=== PATIENT | female | born 1955 | race African-American/Black ===

== ENCOUNTER 2017-01-29 10:53 | Observation (INO) | payer OTHER ==
[2017-01-29] VITALS (7 sets, daily range): BP systolic 108–158; BP diastolic 64–80; PULSE 65–90; RESP 18–20; TEMP 96.6–98.3; O2SAT 97–100
[~2017-01-29] VITALS: Ht 165.1 cm; Wt 90.4 kg
[~2017-01-29 10:53] MED LIST: ATOR20TA15 PO; CARV3.12 PO; FOSA70TA PO; HYDR1CRE TOP; HYDR25TA5 PO; LOSA100T PO; TERB1%T TOP; TRUSMIS52
[2017-01-29] MEDS ORDERED: VITA10007 PO (11:20)
[2017-01-29] MEDS ORDERED: ESTRTAB11 PO (11:20)
[2017-01-29] MEDS ORDERED: MULT1TAB84 PO (11:20)
[2017-01-29] MEDS ORDERED: FERR1TAB58 PO (11:20)
--- NOTE | 2017-01-29 11:36 | PD ---
HPI Chief Complaint: Dizziness Time Seen by Provider: 11:19 Travel History International Travel<30 days: No Contact w/Intl Traveler<30days: No Traveled to known affect area: No History of Present Illness HPI This 61-year-old female is complaining of dizziness and trouble walking. She is also having a headache. The symptoms have been going on since Thursday he has a history of a stroke 7 years ago. She said the stroke only affected her vision in the right eye and there are indications in the chart that she had a central retinal artery occlusion. She apparently has a history of carotid stenosis. She is supposed to take aspirin daily but has not been taking it. He does have a history of hypertension. She says her symptoms been fairly steady since they started on Thursday. PFSH Past Medical History Arthritis: Yes Cancer: No Cardiovascular Problems: Yes High Cholesterol: No Congestive Heart Failure: Yes Diabetes: No Diminished Hearing: No Endocrine: No Genitourinary: No Hypertension: Yes Immune Disorder: No Implanted Vascular Access Dvce: No Musculoskeletal: Yes Neurologic: No Psychiatric: No Respiratory: No Immunizations Current: Yes Tetanus Vaccination: > 5 Years Influenza Vaccination: No ?: Not Menopausal: Yes Past Surgical History Gynecologic Surgery: Yes (HYSTERECTOMY-1999) Hysterectomy: Yes Other Surgery: Yes Social History Alcohol Use: No Tobacco Use: No Substance Use: No Allergies-Medications (Allergen,Severity, Reaction): Coded Allergies: No Known Allergies (Verified , 01/29/17) Reported Meds & Prescriptions Reported Meds & Active Scripts Active Atorvastatin (Atorvastatin Calcium) 20 Mg Tab 20 Mg PO HS Losartan (Losartan Potassium) 100 Mg Tab 100 Mg PO DAILY Fosamax (Alendronate Sodium) 70 Mg Tab 70 Mg PO WEEKLY Hydrochlorothiazide 25 Mg Tab 25 Mg PO DAILY Carvedilol 3.125 Mg Tab 3.125 Mg PO BID Reported Vitamin C (Ascorbic Acid) 1,000 Mg Tab 1,000 Mg PO DAILY Estroven Nighttime (Nutritional Formula) 1 Tab 1 Tab PO DAILY Iron (Ferrous Sulfate) 50 Mg Tab 65 Mg PO DAILY Multivitamin Adults (Multiple Vitamins W/ Minerals) 1 Tab 1 Tab PO DAILY Review of Systems General / Constitutional: No: Fever, Chills Eyes: Positive: Blindness (right eye), No: Diploplia HENT: Positive: Headaches Cardiovascular: No: Chest Pain or Discomfort, Palpitations Respiratory: No: Cough, Shortness of Breath Gastrointestinal: No: Vomiting, Diarrhea Genitourinary: No: Urgency, Frequency Musculoskeletal: No: Myalgias Skin: No Rash Neurologic: Positive: Weakness, Headache Endocrine: No: Heat Intolerance Physical Exam Narrative GENERAL: Well-appearing female SKIN: Focused skin assessment warm/dry. HEAD: Atraumatic. Normocephalic. EYES: Pupils equal and round. There is lateral deviation of the right eye and eye movements are not conjugate. Pupils are small bilaterally ENT: No nasal bleeding or discharge. Mucous membranes pink and moist. NECK: Trachea midline. No JVD. CARDIOVASCULAR: Regular rate and rhythm. No murmur appreciated. RESPIRATORY: No accessory muscle use. Clear to auscultation. Breath sounds equal bilaterally. GASTROINTESTINAL: Abdomen soft, non-tender, nondistended. Hepatic and splenic margins not palpable. MUSCULOSKELETAL: No obvious deformities. No clubbing. No cyanosis. No edema. NEUROLOGICAL: Awake and alert. Left pupil is deviated laterally suggestive of third nerve palsy Motor grossly within normal limits. Normal speech. Babinskis are downgoing bilaterally. I did stand the patient and her gait is very unsteady. There is some past pointing on cerebellar testing PSYCHIATRIC: Appropriate mood and affect; insight and judgment normal. Data Data Last Documented VS Vital Signs Date Time Temp Pulse Resp B/P Pulse Ox O2 Delivery O2 Flow Rate FiO2 01/29/17 12:13 74 18 135/73 99 Room Air 01/29/17 10:59 98.3 Orders Electrocardiogram (01/29/17 11:30) Complete Blood Count With Diff (01/29/17 11:30) Basic Metabolic Panel (Bmp) (01/29/17 11:30) Prothrombin Time / Inr (Pt) (01/29/17 11:30) Act Partial Throm Time (Ptt) (01/29/17 11:30) Urinalysis - C+S If Indicated (01/29/17 11:30) Ct Brain W/O Iv Contrast(Rout) (01/29/17 11:30) Troponin I (01/29/17 11:45) Chest, Single Ap (01/29/17 11:45) Aspirin (Aspirin) (01/29/17 12:15) Labs Laboratory Tests Test 01/29/17 01/29/17 11:30 11:48 White Blood Count 7.1 TH/MM3 Red Blood Count 4.02 MIL/MM3 Hemoglobin 11.7 GM/DL Hematocrit 35.6 % Mean Corpuscular Volume 88.5 FL Mean Corpuscular Hemoglobin 29.1 PG Mean Corpuscular Hemoglobin 32.9 % Concent Red Cell Distribution Width 13.7 % Platelet Count 195 TH/MM3 Mean Platelet Volume 8.6 FL Neutrophils (%) (Auto) 62.6 % Lymphocytes (%) (Auto) 30.9 % Monocytes (%) (Auto) 4.2 % Eosinophils (%) (Auto) 1.4 % Basophils (%) (Auto) 0.9 % Neutrophils # (Auto) 4.4 TH/MM3 Lymphocytes # (Auto) 2.2 TH/MM3 Monocytes # (Auto) 0.3 TH/MM3 Eosinophils # (Auto) 0.1 TH/MM3 Basophils # (Auto) 0.1 TH/MM3 CBC Comment DIFF FINAL Differential Comment Prothrombin Time 11.3 SEC Prothromb Time International 1.0 RATIO Ratio Activated Partial 27.7 SEC Thromboplast Time Sodium Level 140 MEQ/L Potassium Level 3.4 MEQ/L Chloride Level 103 MEQ/L Carbon Dioxide Level 30.9 MEQ/L Anion Gap 6 MEQ/L Blood Urea Nitrogen 15 MG/DL Creatinine 0.93 MG/DL Estimat Glomerular Filtration 74 ML/MIN Rate Random Glucose 145 MG/DL Calcium Level 9.6 MG/DL Troponin I LESS THAN 0.02 NG/ML Urine Collection Type CLEAN CATCH Urine Color STRAW Urine Turbidity CLEAR Urine pH 6.5 Urine Specific [place] 1.004 Urine Protein NEG mg/dL Urine Glucose (UA) NEG mg/dL Urine Ketones NEG mg/dL Urine Occult Blood NEG Urine Nitrite NEG Urine Bilirubin NEG Urine Leukocyte Esterase NEG Urine Squamous Epithelial 0-5 /hpf Cells Urine Amorphous Sediment FEW Microscopic Urinalysis Comment CULT NOT INDICATED Urine Collection Time 1145 MDM Medical Decision Making Medical Screen Exam Complete: Yes Emergency Medical Condition: Yes Medical Record Reviewed: Yes Differential Diagnosis Differential includes, CVA, labyrinthitis Narrative Course EKG shows some ST depression in leads II, III, and F which is not present on previous EKGs. CT scan of the brain shows a large area of ossification involving the right frontal skull, otherwise negative Diagnosis Primary Impression: Third nerve palsy of right eye Additional Impression: CVA (cerebrovascular accident) Qualified Code: I63.9 - Cerebrovascular accident (CVA), unspecified mechanism Admitting Information Admitting Physician Requests: Enrique Crook MD Jan 29, 2017 11:36
[2017-01-29 11:47] LABS: AUTOMATED NEUTROPHIL # 4.4 TH/MM3 (1.8-7.7); BASOPHIL # 0.1 TH/MM3 (0-0.2); BASOPHIL % 0.9 % (0.0-2.0); EOSINOPHIL # 0.1 TH/MM3 (0-0.4); EOSINOPHIL % 1.4 % (0.0-4.0); HEMATOCRIT 35.6 % (35.0-46.0); LYMPH % 30.9 % (9.0-44.0); LYMPHOCYTE # 2.2 TH/MM3 (1.0-4.8); MEAN CELL VOLUME 88.5 FL (80.0-100.0); MEAN CORPUSCULAR HEMOGLOBIN 29.1 PG (27.0-34.0); MEAN CORPUSCULAR HGB CONC 32.9 % (32.0-36.0); MONO % 4.2 % (0.0-8.0); NEUT % 62.6 % (16.0-70.0); PLATELET COUNT 195 TH/MM3 (150-450); RED BLOOD COUNT 4.02 MIL/MM3 (4.00-5.30); RED CELL DISTRIBUTION WIDTH 13.7 % (11.6-17.2); WHITE BLOOD COUNT 7.1 TH/MM3 (4.0-11.0)
[2017-01-29 11:50] LABS: HEMO FLAGS DIFF FINAL
[2017-01-29 11:55] LABS: POTASSIUM 3.4 MEQ/L (3.5-5.1)
[2017-01-29 11:58] LABS: BICARBONATE 30.9 MEQ/L (21.0-32.0)
--- NOTE | 2017-01-29 12:02 | RADHPO ---
EXAM DATE/TIME: 01/29/2017 11:43 [facility] COMPARISON: No previous studies available for comparison. INDICATIONS : Dizziness. Cephalgia. RADIATION DOSE: 65.61 CTDIvol (mGy) MEDICAL HISTORY : Congestive hearrt failure. Hypertension. Blind in right eye. SURGICAL HISTORY : Hysterectomy. ENCOUNTER: Initial ACUITY: 4 - 6 days PAIN SCALE: 8/10 LOCATION: cranial TECHNIQUE: Multiple contiguous axial images were obtained of the head. Using automated exposure control and adj ustment of the mA and/or kV according to patient size, radiation dose was kept as low as reasonably a chievable to obtain optimal diagnostic quality images. FINDINGS: There is no evidence for intracranial hemorrhage, mass effect, mass lesions, edema, or extra-axial fl uid collections. The visualized bony structures appear intact. The ventricles are normal size for t he patient's age. There are no signs of acute infarction for technique. There is a large approximate ly 3.1 cm ossification coming off the right frontal skull may be a large calcified meningioma or poss ibly hyperostosis and/or osteoma. The appearance is benign. CONCLUSION: Large area of ossification involving the right frontal skull, otherwise unremarkable. Rui Denney MD on January 29, 2017 at 11:59 Board Certified Radiologist. This report was verified electronically.
[2017-01-29 12:03] LABS: BLOOD, URINE NEG (NEG); GLUCOSE,URINE NEG (NEG); KETONE, URINE NEG (NEG); NITRITE,URINE NEG (NEG); PH, URINE 6.5 (5.0-8.5)
[2017-01-29 12:04] LABS: APTT (PATIENT) 27.7 SEC (24.3-30.1); PROTHROMBIN TIME - PATIENT 11.3 SEC (9.8-11.6)
--- NOTE | 2017-01-29 12:05 | RADHPO ---
EXAM DATE/TIME: 01/29/2017 11:57 [facility] COMPARISON: CHEST SINGLE AP, May 25, 2014, 7:28. INDICATIONS : Syncopal episode, light headed, dizziness. MEDICAL HISTORY : Hypertension. Congestive heart failure. Arthritis. Stroke. SURGICAL HISTORY : Hysterectomy. ENCOUNTER: Initial ACUITY: 4 - 6 days PAIN SCORE: 0/10 LOCATION: Chest FINDINGS: The heart is enlarged. The pulmonary vascular pattern is normal. The lungs are clear. CONCLUSION: 1. Cardiomegaly. 2. No acute focal pulmonary infiltrate or pulmonary vascular congestion. 3. Degenerative changes throughout the thoracic spine. Livan Mcnulty MD on January 29, 2017 at 11:59 Board Certified Radiologist. This report was verified electronically.
[2017-01-29 12:06] LABS: METHOD OF COLLECTION CLEAN CATCH; URINE COLOR STRAW (YELLW/STRAW)
[2017-01-29 12:08] LABS: COMMENT (UR) CULT NOT INDICATED; CULTURE IF INDICATED CULT NOT INDICATED; SQUAMOUS EPITHELIAL CELL URINE 0-5 /hpf (0-5)
[2017-01-29] MEDS ORDERED: ASPIRIN 325 MG TAB PO ONE (12:15)
--- NOTE | 2017-01-29 12:52 | HHI.HP ---
HPI [facility] Primary Care Physician Unknown Admission Diagnosis CVA Chief Complaint: dizziness, headache Travel History International Travel<30 Days: No Contact w/Intl Traveler <30 Da: No Traveled to Known Affected Are: No History of Present Illness This 61-year-old female with HTN, hx CHF and ? hx of CVA is complaining of dizziness and trouble walking. She is also having a headache in the right frontal area. The symptoms have been going on since Thursday (3 days [employer]). She has a reported history of a stroke 7 years ago. She said the stroke only affected her vision in the right eye and there are indications in the chart that she had a central retinal artery occlusion. She apparently has a history of carotid stenosis however carotid ultrasound done in 2016 and MRA done today did not reveal significant obstructive disease. She is supposed to take aspirin daily but has not been taking it. He does have a history of hypertension. She says her symptoms been fairly steady since they started on Thursday. 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 Denies any chest pain or shortness of breath. Said she came to the ER as she was somewhat fearful given her unsteady gait. She was able to call the [employer] bus and arrange for transportation. She was able to ambulate and get on the bus and off but is relatively independently per her report. Review of Systems Constitutional: COMPLAINS OF: Dizziness Eyes: COMPLAINS OF: Vision loss, DENIES: Blurred vision, Diplopia, Eye inflammation, Eye pain, Photosensitivity, Double Vision Respiratory: DENIES: Apneas, Cough, Snoring, Wheezing, Hemoptysis, Sputum production, Shortness of breath Cardiovascular: DENIES: Chest pain, Palpitations, Syncope, Dyspnea on Exertion , PND, Lower Extremity Edema, Orthopnea, Claudication Gastrointestinal: DENIES: Abdominal pain, Black stools, Bloody stools, BRB per rectum, Constipation, Diarrhea, GERD, Nausea, Reflux, Vomiting, Difficulty Swallowing, Anorexia, See HPI Musculoskeletal: COMPLAINS OF: Joint pain Hematologic/lymphatic: DENIES: Bruising, Lymphadenopathy Neurologic: COMPLAINS OF: Abnormal gait, Poor Balance Psychiatric: COMPLAINS OF: Anxiety Past Family Social History Past Medical History HTN Hx of Cardiomyopathy/CHF (EF around 40-45% per 2014 Echo, but nml EF of 55% on Echo) OsteoA Anemia ? hx CVA with right central retinal artery occlusion COPD per outpt records Past Surgical History RAYMOND with cervix removal 1999 Reported Medications Atorvastatin (Atorvastatin Calcium) 20 Mg Tab 20 Mg PO HS Losartan (Losartan Potassium) 100 Mg Tab 100 Mg PO DAILY Fosamax (Alendronate Sodium) 70 Mg Tab 70 Mg PO WEEKLY Hydrochlorothiazide 25 Mg Tab 25 Mg PO DAILY Vitamin C (Ascorbic Acid) 1,000 Mg Tab 1,000 Mg PO DAILY Estroven Nighttime (Nutritional Formula) 1 Tab 1 Tab PO DAILY Iron (Ferrous Sulfate) 50 Mg Tab 65 Mg PO DAILY Multivitamin Adults (Multiple Vitamins W/ Minerals) 1 Tab 1 Tab PO DAILY Coreg 3.125 mg bid. 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 Alert and oriented. Cooperative with exam. SKIN: No rashes, ecchymoses or lesions. Cool and dry. HEAD: Atraumatic. Normocephalic. No temporal or scalp tenderness. EYES: Right pupil essentially nonreactive. Extraocular motions intact with slight disconjugate gaze involving right eye strabismus. No scleral icterus. No injection or drainage. Arcus senilis noted bilaterally. ENT: Nose without bleeding, purulent drainage or septal hematoma. TMs within normal. Airway patent. NECK: Trachea midline. No JVD or lymphadenopathy. Supple, nontender, no meningeal signs. No bruit. CARDIOVASCULAR: Regular rate and rhythm without murmurs, gallops, or rubs. RESPIRATORY: Clear to auscultation. Breath sounds equal bilaterally. No wheezes , rales, or rhonchi. GASTROINTESTINAL: Abdomen soft, non-tender, nondistended. No hepato-splenomegaly , or palpable masses. No guarding. MUSCULOSKELETAL: Extremities without clubbing, cyanosis, or edema. No joint tenderness, effusion, or edema noted. No calf tenderness. NEUROLOGICAL: Awake and alert. Cranial nerves II through XII intact with the exception of right eye abnormalities noted above. Finger to nose and heel phillips test normal. Five out of 5 muscle strength in all muscle groups. Normal speech per her baseline. Laboratory Laboratory Tests Test 01/29/17 01/29/17 11:30 11:48 White Blood Count 7.1 Red Blood Count 4.02 Hemoglobin 11.7 Hematocrit 35.6 Mean Corpuscular Volume 88.5 Mean Corpuscular Hemoglobin 29.1 Mean Corpuscular Hemoglobin 32.9 Concent Red Cell Distribution Width 13.7 Platelet Count 195 Mean Platelet Volume 8.6 Neutrophils (%) (Auto) 62.6 Lymphocytes (%) (Auto) 30.9 Monocytes (%) (Auto) 4.2 Eosinophils (%) (Auto) 1.4 Basophils (%) (Auto) 0.9 Neutrophils # (Auto) 4.4 Lymphocytes # (Auto) 2.2 Monocytes # (Auto) 0.3 Eosinophils # (Auto) 0.1 Basophils # (Auto) 0.1 CBC Comment DIFF FINAL Differential Comment Prothrombin Time 11.3 Prothromb Time International 1.0 Ratio Activated Partial 27.7 Thromboplast Time Sodium Level 140 Potassium Level 3.4 Chloride Level 103 Carbon Dioxide Level 30.9 Anion Gap 6 Blood Urea Nitrogen 15 Creatinine 0.93 Estimat Glomerular Filtration 74 Rate Random Glucose 145 Calcium Level 9.6 Troponin I LESS THAN 0.02 Urine Collection Type CLEAN CATCH Urine Color STRAW Urine Turbidity CLEAR Urine pH 6.5 Urine Specific [place] 1.004 Urine Protein NEG Urine Glucose (UA) NEG Urine Ketones NEG Urine Occult Blood NEG Urine Nitrite NEG Urine Bilirubin NEG Urine Leukocyte Esterase NEG Urine Squamous Epithelial 0-5 Cells Urine Amorphous Sediment FEW Microscopic Urinalysis Comment CULT NOT INDICATED Urine Collection Time 1145 Result Diagram: 01/29/17 1130 01/29/17 1130 Imaging Last 72 hours Impressions Chest X-Ray 01/29/17 1145 Signed Impressions: Service Date/Time: January 11:57 - CONCLUSION: 1. Cardiomegaly. 2. No acute focal pulmonary infiltrate or pulmonary vascular congestion. 3. Degenerative changes throughout the thoracic spine. Lvian Mcnulty MD Head CT 01/29/17 1130 Signed Impressions: Service Date/Time: January 11:43 - CONCLUSION: Large area of ossification involving the right frontal skull, otherwise unremarkable. Rui Denney MD Neck Magnetic Resonance Angiography 01/29/17 0000 Signed Impressions: Service Date/Time: January 14:26 - CONCLUSION: Bilateral external carotid artery stenoses. No evidence of significant common or internal carotid artery stenosis. Dominant left vertebral artery. Small diffusely irregular right vertebral artery. Igor Stafford MD Head Magnetic Resonance Angiography 01/29/17 0000 Signed Impressions: Service Date/Time: January 14:26 - CONCLUSION: Unremarkable MRA. No evidence of vasculopathy, stenosis, occlusion or aneurysm. Igor Stafford MD Assessment and Plan Problem List: (1) Disequilibrium Status: Acute Plan: Question of etiology. MRA and CT negative. MRI pending. We'll resume her aspirin given her history of stroke. I advised her to continue aspirin daily as directed. Neurology has been consult. Physical therapy consult. (2) Hypertension Status: Chronic Plan: Permissive hypertension will be allowed. (3) Systolic CHF Status: Chronic Plan: Appears to be quiescent. EF wnl 06/2016 on Echo. Code Status full Discussed Condition With Pt and ER physician Problem Qualifiers (1) Hypertension: Qualified Code: I10 - Essential hypertension Kj Mclaughlin MD PhD Jan 29, 2017 12:52
[2017-01-29] MEDS ORDERED: POTASSIUM CHLORIDE 10 MEQ CONTROLLED RELEASE TAB PO ONE (13:00)
[2017-01-29] MEDS ORDERED: GADODIAMIDE PF 287 MG/ML 20 ML VIAL (for RAD MRI) IV ONE (14:48)
--- NOTE | 2017-01-29 15:24 | RADHPO ---
EXAM DATE/TIME: 01/29/2017 14:26 [facility] COMPARISON: No previous studies available for comparison. INDICATIONS : Cephalgia. Unsteady gait and disequilibrium. MEDICAL HISTORY : Hypertension. SURGICAL HISTORY : Hysterectomy. ENCOUNTER: Initial ACUITY: 1 day PAIN SCORE: 5/10 LOCATION: Head. Please note a normal MRA of the brain does not entirely exclude the possibility of a small aneurysm, nor the possibility of distal intracranial vessel disease. TECHNIQUE: 3D time of flight MRA was performed. Source images, multiplanar STS MIP, and 3D volume MIP reconstru ctions were reviewed. FINDINGS: There is excellent visualization of the major intracranial arteries out to the second-order branch ve ssels. There is no evidence for aneurysm, vessel truncation or stenosis, and no evidence for vascula r malformation. CONCLUSION: Unremarkable MRA. No evidence of vasculopathy, stenosis, occlusion or aneurysm. Igor Stafford MD on January 29, 2017 at 15:21 Board Certified Radiologist. This report was verified electronically.
--- NOTE | 2017-01-29 15:28 | RADHPO ---
EXAM DATE/TIME: 01/29/2017 14:26 [facility] COMPARISON: No previous studies available for comparison. INDICATIONS : Stenosis. Cephalgia and unsteady gait. CONTRAST: 20 cc Omniscan (gadodiamide) IV MEDICAL HISTORY : Hypertension. SURGICAL HISTORY : Hysterectomy. ENCOUNTER: Initial ACUITY: 1 day PAIN SCORE: 5/10 LOCATION: Head. Percent stenosis is calculated using the diameter of the stenotic region over the diameter of the nor mal distal internal carotid artery. TECHNIQUE: Bolus infused MRA of the extracranial circulation was performed using a neurovascular coil. Post pro cessing was performed including rotating subvolume maximum intensity projections of each carotid leon ry, rotating full volume maximum intensity projections of both carotid arteries, sagittal and coronal sliding thin slab reformations of each carotid artery, and left oblique sliding thin slab reformatio n through the aortic arch to include the origin of the arch branch vessels. FINDINGS: AORTIC ARCH: There is a three vessel origin of the great vessels from the aorta. No evidence of ostial narrowing. RIGHT CAROTID: Significant plaque is seen at the origin of the external carotid artery. The common and internal boo tid arteries are widely patent without significant stenosis. LEFT CAROTID: Significant plaque is seen at the origin of the external carotid artery. The common and internal boo tid arteries are widely patent without significant stenosis. VERTEBRALS: The vertebral arteries are asymmetric with left vertebral being dominant. No stenotic lesions are see n in the proximal left vertebral artery. The right vertebral artery is markedly narrowed throughout. CONCLUSION: Bilateral external carotid artery stenoses. No evidence of significant common or internal carotid artery stenosis. Dominant left vertebral artery. Small diffusely irregular right vertebral artery. Igor Stafford MD on January 29, 2017 at 15:23 Board Certified Radiologist. This report was verified electronically.
--- NOTE | 2017-01-29 15:34 | RADHPO ---
EXAM DATE/TIME: 01/29/2017 14:26 [facility] COMPARISON: CT BRAIN W/O CONTRAST, January 29, 2017, 11:43. INDICATIONS : Cephalgia. Unsteady gait. CONTRAST: 20 cc Omniscan (gadodiamide) IV MEDICAL HISTORY : Hypertension. SURGICAL HISTORY : Hysterectomy. ENCOUNTER: Initial ACUITY: 1 day PAIN SCORE: 5/10 LOCATION: Head. TECHNIQUE: Multiplanar, multisequence MRI of the brain was performed both prior to and following the administrat ion of paramagnetic contrast. FINDINGS: CEREBRUM: Along the right frontoparietal convexity there is a dural based extra-axial mass measuring 2.2 x 1.1 x 2.3 cm in size. This corresponds to the ossification identified on CT. Sternal cortex is otherwise unremarkable. There is no evidence of acute infarct or hemorrhage. WHITE MATTER: Minimal signal abnormalities are seen in the white matter. POSTERIOR FOSSA: The cerebellum and brainstem are intact. The 4th ventricle is midline. The cerebellopontine angle is unremarkable. The cerebellar tonsils are normal in position. DIFFUSION IMAGING: No focal areas of restricted diffusion are seen. No evidence of acute infarction. EXTRACRANIAL: The visualized portions of the orbits and paranasal sinuses are unremarkable. POST-CONTRAST: No abnormal areas of parenchymal or dural enhancement. No evidence of blood-brain barrier breakdown. CONCLUSION: Calcified dural based mass along the right frontoparietal convexity representing eith er a calcified meningioma or focal exostosis. There is no significant underlying mass effect or edema . Normal white matter changes which appear chronic. No evidence of acute infarct, hemorrhage, intra-axial mass, enhancing lesions or edema. Igor Stafford MD on January 29, 2017 at 15:27 Board Certified Radiologist. This report was verified electronically.
[2017-01-29] MEDS ORDERED: TEMAZEPAM 15 MG CAP PO PRN (21:45)
--- NOTE | 2017-01-29 23:03 | MB ---
cc: NARDA MARTINEZ MD DATE OF CONSULTATION 01/29/17 REASON FOR CONSULTATION Headache/possible stroke. HISTORY OF PRESENT ILLNESS Ms. Ramirez is a 61-year-old -Italian female with past medical history of hypertension, congestive heart failure and history of stroke diagnosed about seven years ago with central retinal artery occlusion who presented to the hospital with unsteadiness of walking and dizziness that started from last Thursday. She also complains of headache on the right side of the head, eye and maxillary region. She denies any history of trauma, but she states that she may be weaker on the right due to the stroke but she is uncertain about that. She thinks that she has history of carotid stenosis, however, a carotid ultrasound in 2016 and MRI did not reveal significant stenotic disease. She is not on aspirin. She was prescribed but she did not use it because she thinks it may hurt her stomach. She said she always had history of high blood pressure. She described what happened as feeling lightheaded and her legs were unsteady, but she denies any nausea, vomiting, ringing in the ears, ear problems or weakness of an extremity. However, she thinks her legs were unsteady when she walks. She denies slurred speech, facial numbness, disorientation or any seizure activity. The patient came to the ER because of fear of having a stroke. REVIEW OF SYSTEMS A 12-point review of systems is negative except for what is stated in the HPI. PAST MEDICAL HISTORY 1. Hypertension, 2. Cardiomyopathy, 3. Congestive heart failure, 4. Anemia 5. History of stroke involving the right central retinal artery occlusion 6. Chronic obstructive pulmonary disease PAST SURGICAL HISTORY [facility] with surgical removal in 1999. MEDICATIONS 1. Atorvastatin. 2. Losartan. 3. Fosamax. 4. Hydrochlorothiazide. 5. Vitamin C 6. Estrogen 7. Iron 8. Multivitamin 9. Coreg. ALLERGIES No known allergies. FAMILY HISTORY Father has Alzheimer's disease and liver cirrhosis. Mother has COPD and osteoarthritis. SOCIAL HISTORY Denies tobacco, ethanol or illicit drug abuse. PHYSICAL EXAMINATION GENERAL: Awake, alert, good historian, anxious, but not in apparent distress HEENT: Atraumatic, normocephalic. Intact hearing and intact vision. Arcus senilis in both eyes NECK: No carotid bruits. Supple. No signs of meningeal irritation. CARDIOVASCULAR: Regular rate and rhythm. RESPIRATORY: Clear to auscultation. No wheezes GASTROINTESTINAL: Soft abdomen. No tenderness MUSCULOSKELETAL: Extremities without clubbing, cyanosis or edema. Moves extremities equally. NEUROLOGIC: Awake, alert, oriented to time, person and place. Intact immediate and remote memory. Cranial nerves II-XII are grossly intact. Intact extraocular motility. Pupils are bilateral symmetrical reacting to light 2 mm. No facial asymmetry is noted. No dysphasia. Intact speech content. No dysarthria. 5/5 bilateral and symmetrical upper and lower extremities, normal tone. No abnormal movement. Sensation is intact bilateral and symmetrical to pain temperature in upper and lower extremities. [id number], [id number] is normal. Reflexes 2+ bilateral and symmetrical. Plantars are bilaterally downgoing. Stance is normal wide-based gait, ataxic gait. Cannot perform tandem walk and unable to perform Romberg test. PSYCHIATRIC: Intact mood and behavior. No hallucination. LABORATORY DATA - White blood cells 7.1, hemoglobin 11.7, MCV 88.5, platelet count 195, INR one, sodium 140. Potassium 3.4, chloride 103, anion gap six, BUN 15, creatinine 0.93, calcium 9.6. IMAGING STUDIES - Head CT scan revealed large area of ossification involving the right frontal skull. - Brain MRI with and without contrast revealed calcified dural-based mass along the right frontal parietal convexity representing either a calcified meningioma or focal exostosis. There is no significant underlying mass effect or edema. Normal white matter changes which appear chronic. No evidence of acute infarct, hemorrhage, mass, enhancing lesions or edema. - Head MRA without contrast - No evidence of vasculopathy, stenosis or occlusion or aneurysm. - Unremarkable Neck MRA. MRA of the carotids revealed bilateral external carotid artery stenoses. No evidence of significant common internal carotid artery stenosis.Dominant left vertebral artery. Small, diffusely irregular right vertebral artery. DIAGNOSTIC IMPRESSION 1. Gait ataxia. 2. Neurologic examination is nonfocal. However, there is right sided facial pain with dizziness and an abnormal finding of a possible meningioma on the right frontoparietal region of the brain 3. Hypertension. 4. History of right central retinal artery occlusion/ischemic stroke PLAN 1. Aspirin 81 mg daily 2. Neuro checks q. four hourly. 3. Consider consulting neurosurgery, recommendations are appreciated. 4. PT OT recommendations are appreciated. 5. DVT prophylaxis SCDs. 6. Fall precautions. Thank you for the opportunity to participate in the care of your patient. MD DEANNA Dougherty/ /9:56 PM /10:40 PM BARBARA
[2017-01-30] VITALS: BP 135/77; PULSE 72; RESP 18; TEMP 98.6; O2SAT 98
[2017-01-30 04:00] VITALS: BP 140/79; PULSE 64; RESP 16; TEMP 97.6; O2SAT 99
--- NOTE | 2017-01-30 06:13 | HHI.PR ---
Subjective Remarks Patient feeling better today. Headache has resolved. She has not attempted to walk as morning but admits to less dizziness. She denies any chest pain or shortness of breath. Reports she had a negative stress test as an outpatient in the last few months. Objective Vitals Vital Signs Date Time Temp Pulse Resp B/P Pulse Ox O2 Delivery O2 Flow Rate FiO2 01/30/17 04:00 97.6 64 16 140/79 99 01/30/17 00:00 98.6 72 18 135/77 98 01/29/17 20:00 98.1 68 20 108/79 97 01/29/17 20:00 65 01/29/17 16:00 97.0 72 20 150/78 100 01/29/17 14:00 96.6 74 20 146/80 100 01/29/17 13:13 70 18 135/78 99 Room Air 01/29/17 12:13 74 18 135/73 99 Room Air 01/29/17 11:11 77 18 150/64 100 Room Air 01/29/17 11:11 100 Room Air 01/29/17 10:59 98.3 90 18 158/71 98 01/29/17 01/29/17 01/30/17 15:00 23:00 07:00 Intake Total 120 ml 480 ml Output Total 1 ml Balance 120 ml 479 ml Intake Oral 480 ml IV Total 120 ml Output Urine Total 1 ml # Voids 1 # Bowel Movements 0 GENERAL: Awake and alert. Actually texturing on her phone to her daughter who reportedly is in [place]. SKIN: Warm and dry. HEAD: Normocephalic. EYES: No scleral icterus. No injection or drainage. Extraocular motions intact. Some disconjugate movement related to the right eye which patient reports is chronic. NECK: Supple, trachea midline. No JVD or lymphadenopathy. CARDIOVASCULAR: Regular rate and rhythm without murmurs, gallops, or rubs. RESPIRATORY: Breath sounds equal bilaterally. No accessory muscle use. GASTROINTESTINAL: Abdomen soft, non-tender, nondistended. MUSCULOSKELETAL: No cyanosis, or edema. Moves all extremities well. Strength 5 out of 54 extremities. BACK: Nontender without obvious deformity. No CVA tenderness. Result Diagram: 01/29/17 1130 01/29/17 1130 Imaging Last 72 hours Impressions Chest X-Ray 01/29/17 1145 Signed Impressions: Service Date/Time: January 11:57 - CONCLUSION: 1. Cardiomegaly. 2. No acute focal pulmonary infiltrate or pulmonary vascular congestion. 3. Degenerative changes throughout the thoracic spine. Livan Mcnulty MD Head CT 01/29/17 1130 Signed Impressions: Service Date/Time: January 11:43 - CONCLUSION: Large area of ossification involving the right frontal skull, otherwise unremarkable. Rui Denney MD Neck Magnetic Resonance Angiography 01/29/17 0000 Signed Impressions: Service Date/Time: January 14:26 - CONCLUSION: Bilateral external carotid artery stenoses. No evidence of significant common or internal carotid artery stenosis. Dominant left vertebral artery. Small diffusely irregular right vertebral artery. Igor Stafford MD Head Magnetic Resonance Angiography 01/29/17 0000 Signed Impressions: Service Date/Time: January 14:26 - CONCLUSION: Unremarkable MRA. No evidence of vasculopathy, stenosis, occlusion or aneurysm. Igor Stafford MD Brain MRI 01/29/17 0000 Signed Impressions: Service Date/Time: January 14:26 - CONCLUSION: Calcified dural based mass along the right frontoparietal convexity representing either a calcified meningioma or focal exostosis. There is no significant underlying mass effect or edema. Normal white matter changes which appear chronic. No evidence of acute infarct, hemorrhage, intra-axial mass, enhancing lesions or edema. Igor Stafford MD Last 72 hours Impressions Chest X-Ray 01/29/17 1145 Signed Impressions: Service Date/Time: January 11:57 - CONCLUSION: 1. Cardiomegaly. 2. No acute focal pulmonary infiltrate or pulmonary vascular congestion. 3. Degenerative changes throughout the thoracic spine. Livan Mcnulty MD Head CT 01/29/17 1130 Signed Impressions: Service Date/Time: January 11:43 - CONCLUSION: Large area of ossification involving the right frontal skull, otherwise unremarkable. Rui Denney MD Neck Magnetic Resonance Angiography 01/29/17 0000 Signed Impressions: Service Date/Time: January 14:26 - CONCLUSION: Bilateral external carotid artery stenoses. No evidence of significant common or internal carotid artery stenosis. Dominant left vertebral artery. Small diffusely irregular right vertebral artery. Igor Stafford MD Head Magnetic Resonance Angiography 01/29/17 0000 Signed Impressions: Service Date/Time: January 14:26 - CONCLUSION: Unremarkable MRA. No evidence of vasculopathy, stenosis, occlusion or aneurysm. Igor Stafford MD Urinary Catheter: No Vascular Central Line Catheter: No A/P Problem List: (1) Disequilibrium Status: Acute Plan: Question of etiology. MRA, CT and MRI all noted. reports that she has had the meningioma abnormality at least for 20 years. We have resumed her aspirin given her history of stroke. I advised her to continue aspirin daily as directed. Neurology consult appreciated. Patient reports she saw a neurosurgeon in [place] regarding the right sided meningioma and was advised against surgery at that time. Her headache has resolved. Physical therapy consult pending. Possible discharge home today depending on how she does with physical therapy and how her symptoms progress during activity. (2) Hypertension Status: Chronic Plan: Permissive hypertension will be allowed initially. BP overall well controlled. (3) Systolic CHF Status: Chronic Plan: Appears to be quiescent. EF wnl 06/2016 on Echo. Patient reports she had a stress test done as an outpatient within the last few months. Denies chest pain or shortness of breath. Discharge Planning Hopefully discharge home later today. Problem Qualifiers (1) Hypertension: Qualified Code: I10 - Essential hypertension Kj Mclaughlin MD PhD Jan 30, 2017 06:13
[2017-01-30 08:00] VITALS: BP 146/86; PULSE 71; RESP 20; TEMP 97.1; O2SAT 100
[2017-01-30] MEDS ORDERED: ASCORBIC ACID 500 MG TAB PO SCH (09:00)
[2017-01-30] MEDS ORDERED: FERROUS SULFATE 325 MG (65 MG ELEMENTAL IRON) TAB PO SCH (09:00)
[2017-01-30] MEDS ORDERED: ASPIRIN 325 MG TAB PO SCH (09:00)
[2017-01-30] MEDS ORDERED: MULTIVITAMINS/MINERALS THERAPEUTIC TAB PO SCH (09:00)
[2017-01-30 09:45] LABS: HDL CHOLESTEROL 54.6 MG/DL (40.0-60.0)
[2017-01-30 10:50] LABS: ANA SCREEN POS (NEG)
--- NOTE | 2017-01-30 11:05 | HHI.FF ---
Face to Face Verification Diagnosis: (1) Disequilibrium Physical Therapy Order: Evaluate and Treat, Improve ambulation, Strength and gait training Home Health Nursing Order: Signs/symptoms of disease process I have seen patient Early Adele Ramirez on 01/30/17. My clinical findings support the need for the requested home health care services because: Ltd mobility - disease progression Med compliance is questionable High risk of falls I certify that my clinical findings support that this patient is homebound because: Unsteady gait/balance Kj Mclaughlin MD PhD Jan 30, 2017 11:05
[2017-01-30 12:00] VITALS: BP 126/80; PULSE 68; RESP 18; TEMP 97.5; O2SAT 99
--- NOTE | 2017-01-30 13:18 | EC ---
Study Study Date:01/30/2017 STUDY CONCLUSIONS SUMMARY - Procedure narrative: Image quality was poor. The study was technically limited due to poor acoustic window availability. - Left ventricle: The cavity size was normal. Systolic function was probably normal. The estimated ejection fraction was in the range of 50% to 55%. Doppler parameters are consistent with abnormal left ventricular relaxation (grade 1 diastolic dysfunction). - Aortic valve: Mild to moderate regurgitation. If LV function is below 40, please consider prescribing an ACEI or ARB or document rationale for non-use. PROCEDURE DATA STUDY STATUS: Elective. Procedure: Transthoracic echocardiography. Image quality was poor. The study was technically limited due to poor acoustic window availability. Scanning was performed from the parasternal, apical, and subcostal acoustic windows. Study completion: The patient tolerated the procedure well. Transthoracic echocardiography. M-mode, complete 2D, complete spectral Doppler, and color Doppler. Height: Height: 65in. Weight: Weight: 200.6lb. Body mass index: BMI: 33.4kg/m^2. Body surface area: BSA: 1.98m^2. Patient status: Inpatient. CARDIAC ANATOMY LEFT VENTRICLE: The cavity size was normal. Systolic function was probably normal. The estimated ejection fraction was in the range of 50% to 55%. Images were inadequate for LV wall motion assessment. Doppler parameters are consistent with abnormal left ventricular relaxation (grade 1 diastolic dysfunction). AORTIC VALVE: The valve appears to be grossly normal. Doppler: There was no stenosis. Mild to moderate regurgitation. Valve area: 1.71cm^2(VTI). Indexed valve area: 0.86cm^2/m^2 (VTI). Valve area: 1.58cm^2 (Vmax). Indexed valve area: 0.8cm^2/m^2 (Vmax). Mean gradient: 5mm Hg (S). MITRAL VALVE: The valve appears to be grossly normal. Doppler: There was no evidence for stenosis. Trace regurgitation. LEFT ATRIUM: The atrium was mildly dilated. PULMONIC VALVE: Not well visualized. Doppler: There was no evidence for stenosis. Trace regurgitation. TRICUSPID VALVE: The valve appears to be grossly normal. Doppler: There was no evidence for stenosis. Trace regurgitation. Patient weight: 200.6lb _Ejection fraction:_ 65-75% _Fractional shortening:_ 32% up to 5Kg 5-11.5Kg 11.6-22.9Kg 23-45Kg 45-57Kg Aortic Root 7-13 <17 13-22 17-27 17-27 LA diam 6-13 <23 24-38 33-47 37-40 RVID 10-17 7-15 7-15 7-18 8-17 LVIDd 12-22 <32 24-38 33-47 37-40 LVPW 2-4 3-6 5-7 6-8 7-8 IVS 2-4 3-6 5-7 6-8 7-8 BASIC MEASUREMENTS ADULT NORMAL Left ventricle LV internal dimension, ED, chordal *53.8 mm 43-52 level, PLAX LV internal dimension, ES, chordal *42.1 mm 23-38 level, PLAX Fractional shortening, chordal level, *22 % >29 PLAX LV posterior wall thickness, ED 9.4 mm IVS/LVPW ratio, ED 1.01 <1.3 Ventricular septum Septal thickness, ED 9.49 mm Aortic valve Leaflet separation 15 mm 15-26 Aorta Root diameter, ED 26 mm Left atrium Anterior-posterior dimension 45 mm Anterior-posterior dimension index *2.27 cm/m^2 <2.2 BASIC MEASUREMENTS ADULT NORMAL Aortic valve Leaflet separation 15 mm 15-26 DOPPLER MEASUREMENTS ADULT NORMAL Aortic valve Peak velocity, S 156 cm/s Mean velocity, S 104 cm/s VTI, S 34.3 cm Mean gradient, S 5 mm Hg Valve area, VTI 1.71 cm^2 Valve area index, VTI 0.86 cm^2/m^2 Valve area, Vmax 1.58 cm^2 Valve area index, Vmax 0.8 cm^2/m^2 Mitral valve Peak E-wave velocity 62.7 cm/s Peak A-wave velocity 89.3 cm/s Deceleration time *306 ms 150-230 Peak E/A ratio 0.7 Tricuspid valve Regurgitant peak velocity 175 cm/s Peak RV-RA gradient, S 12 mm Hg Maximal regurgitant velocity 175 cm/s Pulmonic valve Peak velocity, S 65.4 cm/s LEGEND: Mean values are shown as u=mean value. Asterisk (*) morocho values outside specified normal range. Prepared and signed by Singh Álvarez [id number]
[2017-01-30] MEDS ORDERED: ASPI81CH CHEW (14:52)
--- NOTE | 2017-01-30 15:04 | HHI.DS ---
Discharge Summary Admission Date Jan 29, 2017 at 12:29 Discharge Date: Jan 30, 2017 Admitting Diagnosis CVA (1) Disequilibrium Diagnosis: Principal (2) Hypertension Diagnosis: Secondary (3) Systolic CHF Diagnosis: Secondary Consultants Neurology Brief History This 61-year-old female with HTN, hx CHF and ? hx of CVA is complaining of dizziness and trouble walking. She is also having a headache in the right frontal area. The symptoms have been going on since Thursday (3 days [employer]). She has a reported history of a stroke 7 years ago. She said the stroke only affected her vision in the right eye and there are indications in the chart that she had a central retinal artery occlusion. She apparently has a history of carotid stenosis however carotid ultrasound done in 2016 and MRA done today did not reveal significant obstructive disease. She is supposed to take aspirin daily but has not been taking it. He does have a history of hypertension. She says her symptoms been fairly steady since they started on Thursday. 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 Denies any chest pain or shortness of breath. Said she came to the ER as she was somewhat fearful given her unsteady gait. She was able to call the [employer] bus and arrange for transportation. She was able to ambulate and get on the bus and off but is relatively independently per her report. CBC/BMP: 01/29/17 1130 01/29/17 1130 Significant Findings Laboratory Tests Test 01/29/17 01/29/17 01/29/17 01/30/17 11:30 13:10 17:35 06:55 Potassium Level 3.4 MEQ/L (3.5-5.1) Estimat Glomerular Filtration 74 ML/MIN (>89) Rate Random Glucose 145 MG/DL (74-106) Troponin I LESS THAN 0.02 LESS THAN 0.02 LESS THAN 0.02 NG/ML NG/ML NG/ML (0.02-0.05) (0.02-0.05) (0.02-0.05) Anti-Nuclear Antibody Screen POS (NEG) Imaging Last 72 hours Impressions Chest X-Ray 01/29/17 1145 Signed Impressions: Service Date/Time: January 11:57 - CONCLUSION: 1. Cardiomegaly. 2. No acute focal pulmonary infiltrate or pulmonary vascular congestion. 3. Degenerative changes throughout the thoracic spine. Livan Mcnulty MD Head CT 01/29/17 1130 Signed Impressions: Service Date/Time: January 11:43 - CONCLUSION: Large area of ossification involving the right frontal skull, otherwise unremarkable. Rui Denney MD Neck Magnetic Resonance Angiography 01/29/17 0000 Signed Impressions: Service Date/Time: January 14:26 - CONCLUSION: Bilateral external carotid artery stenoses. No evidence of significant common or internal carotid artery stenosis. Dominant left vertebral artery. Small diffusely irregular right vertebral artery. Igor Stafford MD Head Magnetic Resonance Angiography 01/29/17 0000 Signed Impressions: Service Date/Time: January 14:26 - CONCLUSION: Unremarkable MRA. No evidence of vasculopathy, stenosis, occlusion or aneurysm. Igor Stafford MD Brain MRI 01/29/17 0000 Signed Impressions: Service Date/Time: January 14:26 - CONCLUSION: Calcified dural based mass along the right frontoparietal convexity representing either a calcified meningioma or focal exostosis. There is no significant underlying mass effect or edema. Normal white matter changes which appear chronic. No evidence of acute infarct, hemorrhage, intra-axial mass, enhancing lesions or edema. Igor Stafford MD Hospital Course Pt admitted for disequilibrium, gait abnormality and disconjugate gaze due to concern for central neuro event. Studies negative for acute findings. Chronic meningioma noted. +BAY noted. mild to mod AR noted on Echo with EF around 50%. Case d/w Dr Lin who will see pt next week. Pt will go home with for PT. She was reluctant at first for HH, but agreed once I explained the need to help with fall precautions. She reports that she'd also be OK with outpt PT at [facility] if needed. Pt Condition on Discharge: Stable Discharge Disposition: Disch w/ Home Health Serv Discharge Instructions DIET: Follow Instructions for: Heart Healthy Diet Activities you can perform: Weight Bearing as Ledy Other Activity Instructions: fall precautions Follow up Referrals: Neurology PCP Follow-up New Medications: Aspirin (Aspirin) 81 Mg Chew 81 MG CHEW DAILY cva hx #31 Ref 0 TAB Continued Medications: Alendronate (Fosamax) 70 Mg Tab 70 MG PO WEEKLY Osteoporosis Treatment #12 Ref 3 TAB Ascorbic Acid (Vitamin C) 1,000 Mg Tab 1000 MG PO DAILY Nutritional Supplement Ref 0 TAB Atorvastatin (Atorvastatin) 20 Mg Tab 20 MG PO HS Cholesterol Management #90 Ref 3 TAB Carvedilol (Carvedilol) 3.125 Mg Tab 3.125 MG PO BID #120 Ref 3 TAB Ferrous Sulfate (Iron) 50 Mg Tab 65 MG PO DAILY Nutritional Supplement Ref 0 TAB Losartan (Losartan) 100 Mg Tab 100 MG PO DAILY Blood Pressure Management #90 Ref 3 TAB Multiple Vitamins W/ Minerals (Multivitamin Adults) 1 Tab 1 TAB PO DAILY Nutritional Supplement Ref 0 TAB Discontinued Medications: Estroven Nighttime (Estroven Nighttime) 1 Tab 1 TAB PO DAILY Estrogen Supplements #30 Ref 0 TAB Hydrochlorothiazide (Hydrochlorothiazide) 25 Mg Tab 25 MG PO DAILY #90 Ref 3 TAB Kj Mclaughlin MD PhD Jan 30, 2017 15:04
--- NOTE | 2017-01-30 18:48 | EKG ---
Date Performed: 01/30/2017 Time Performed: 06:10:08 PTAGE: 61 years EKG: Sinus rhythm Poor R wave progression - probable normal variant Inferior T wave changes are nonspecific Compared t o prior tracing no significant change Borderline ECG PREVIOUS TRACING : 01/29/2017 16.34 DOCTOR: Juan Jauregui Interpretating Date/Time 01/30/2017 18:47:54
--- NOTE | 2017-01-30 20:44 | EKG ---
Date Performed: 01/29/2017 Time Performed: 16:34:56 PTAGE: 61 years EKG: Sinus rhythm . Poor R wave progression - probable normal variant Inferior ST-T changes are nonspecific Cannot excl ude inferior ischemia, but no change from the prior tracing Borderline ECG PREVIOUS TRACING : 01/29/2017 11.36 DOCTOR: Juan Jauregui Interpretating Date/Time 01/30/2017 20:42:46
--- NOTE | 2017-01-30 20:44 | EKG ---
Date Performed: 01/29/2017 Time Performed: 11:36:20 PTAGE: 61 years EKG: Sinus rhythm Poor R wave progression - probable normal variant Inferior ST-T changes are nonspecific Inferior ST changes are new Compared to previous tracing Clinical correlation needed Borderline ECG PREVIOUS TRACING : 05/25/2014 07.16 DOCTOR: Juan Jauregui Interpretating Date/Time 01/30/2017 20:42:16
[2017-01-30] MEDS ORDERED: ATORVASTATIN 20 MG TAB PO SCH (21:00)
[2017-02-04] MEDS ORDERED: ASPI325T PO (08:53)
== END 2017-01-30 15:50 | disposition home or self-care (01) ==
LOC: PHED 10:53 → PHEDA 12:29 → PH3B 13:44
PROVIDERS: ADMIT Family Medicine; ATTEND Family Medicine
DX: R27.0 Ataxia, unspecified (principal); R26.2 Difficulty in walking, not elsewhere classified; R42 Dizziness and giddiness; I11.0 Hypertensive heart disease with heart failure; I50.23 Acute on chronic systolic (congestive) heart failure; I42.9 Cardiomyopathy, unspecified; D64.9 Anemia, unspecified; R79.89 Other specified abnormal findings of blood chemistry; R51 Headache; Z79.82 Long term (current) use of aspirin; Z86.73 Personal history of transient ischemic attack (TIA), and cerebral infarction without residual deficits
CPT/HCPCS: 70450; 70544; 70548; 70553; 71010; 80048; 80061; 81001; 84484; 85025; 85610; 85730; 86038; 86039; 93005; 93306; 97162; 99285; A9579; G0378; G8987; G8988

== ENCOUNTER → 2018-02-23 | Outpatient (CLI) | payer OTHER ==
[~2018-02-23] MED LIST changes: +ASPI-183 PO; +CARV25TA PO; -CARV3.12 PO; +CHLO25TA2 PO; +FERR1TAB58 PO; -HYDR1CRE TOP; -HYDR25TA5 PO; +MULT1TAB84 PO; -TERB1%T TOP; +TETA1INJ5 IM; -TRUSMIS52; +VITA10007 PO; +ZOSTINJ SQ
--- NOTE | 2018-02-25 09:21 | RSPPFT ---
DATE OF PROCEDURE: 02/23/18 COMMENTS: Spirometry shows FVC of 1.7 at 56% of predicted, FEV1 of 1.5 at 62%, FEV1/FVC ratio is normal. Flow is decreased at FEF 25 but normal at FEF 50, FEF 75 and FEF 25-75. There is a paradoxical response to bronchodilator treatment. Flow volume loop indicates a restrictive pattern. 6-minute walk test shows no de-saturation. IMPRESSION: 1. Findings are suggestive of restrictive lung disease. 2. Paradoxical response to bronchodilator treatment. 3. 6-minute walk test shows no de-saturation.
== END ==
LOC: PHRSP 06:57
PROVIDERS: ATTEND Specialist
DX: R06.00 Dyspnea, unspecified (principal); J44.9 Chronic obstructive pulmonary disease, unspecified; R09.02 Hypoxemia
CPT/HCPCS: 36600; 82805; 94060; 94618